=== PATIENT | male | born 1960 | race Caucasian/White ===

== ENCOUNTER 2022-01-31 13:51 | Emergency (ER) | payer OTHER ==
[~2022-01-31] VITALS: Ht 182.9 cm; Wt 120.2 kg
[2022-01-31] MEDS ORDERED: NAPROXEN SODIU500 M2 PO (16:48)
== END 2022-01-31 17:06 | disposition home or self-care (01) ==
LOC: ER 13:51
DX: S52.592A Other fractures of lower end of left radius, initial encounter for closed fracture (principal); W18.39XA Other fall on same level, initial encounter; Y92.89 Other specified places as the place of occurrence of the external cause